=== PATIENT | female | born 1970 | race American Indian/Alaskan Native ===

== ENCOUNTER 2022-02-16 17:55 | Emergency (ER) | payer OTHER ==
[2022-02-16 18:16] VITALS: BP 141/94
[2022-02-16] MEDS ORDERED: SODIUM CHLORIDE 0.9% 1000 ML 1,000 ML IV ONE (18:24)
--- NOTE | 2022-02-16 18:34 | Emergency Department Report ---
ED Palpitations HPI - General Chief Complaint: Arrhythmia/Palpitations Stated Complaint: SVT Time Seen by Provider: 02/16/22 18:22 Source: patient, EMS Mode of arrival: Stretcher Limitations: No Limitations - History of Present Illness Initial Comments: 51-year-old female with no past medical history brought in by EMS with cardiac arrhythmia that started few hours before presentation. Patient denies any unusual stressors. Patient denies any cold or heat intolerance. She said her heart started racing suddenly. Patient was given 6 mg of adenosine with instant conversion into normal sinus. EMS tracing captured 182 bpm before treatment was given. No fever or chills reported. No other modifying or associated factors reported. Patient reported that she is postmenopausal. - Related Data Previous Rx's Medication Instructions Recorded Last Taken Type Ciprofloxacin HCl [Cipro] 500 mg PO Q12H #10 tab 10/05/13 Unknown Rx Ferrous Sulfate [Iron Supplement 325 mg PO TID #90 tablet 10/05/13 Unknown Rx 325 Mg tab] medroxyPROGESTERone ACETATE 10 mg PO QDAY #10 tablet 10/05/13 Unknown Rx [Provera] Allergies Allergy/AdvReac Type Severity Reaction Status Date / Time No Known Allergies Allergy Unverified 10/05/13 16:19 ED Review of Systems ROS: Stated complaint: SVT Other details as noted in HPI Comment: All other systems reviewed and negative Respiratory: shortness of breath Cardiovascular: palpitations (SVT). denies: chest pain ED Past Medical Hx - Past Medical History Previous Medical History?: Yes Additional medical history: Endometriosis and uterine polyps - Surgical History Past Surgical History?: No - Social History Smoking Status: Never Smoker Substance Use Type: None - Medications Home Medications: Home Medications Medication Instructions Recorded Confirmed Last Taken Type Ciprofloxacin HCl [Cipro] 500 mg PO Q12H #10 tab 10/05/13 Unknown Rx Ferrous Sulfate [Iron Supplement 325 mg PO TID #90 tablet 10/05/13 Unknown Rx 325 Mg tab] medroxyPROGESTERone ACETATE 10 mg PO QDAY #10 tablet 10/05/13 Unknown Rx [Provera] ED Physical Exam - General Limitations: No Limitations General appearance: alert, in no apparent distress - Head Head exam: Present: atraumatic, normal inspection - Eye Eye exam: Present: normal appearance Pupils: Present: normal accommodation - ENT ENT exam: Present: normal exam, normal orophraynx, mucous membranes moist - Neck Neck exam: Present: normal inspection, full ROM. Absent: tenderness, lymphadenopathy - Respiratory Respiratory exam: Present: normal lung sounds bilaterally. Absent: respiratory distress, accessory muscle use - Cardiovascular Cardiovascular Exam: Present: regular rate, normal rhythm, normal heart sounds - GI/Abdominal GI/Abdominal exam: Present: soft, normal bowel sounds, hypoactive bowel sounds. Absent: distended, tenderness - Extremities Exam Extremities exam: Present: normal inspection, full ROM, normal capillary refill. Absent: tenderness, pedal edema, joint swelling - Back Exam Back exam: Absent: tenderness - Neurological Exam Neurological exam: Present: alert, oriented X3 - Psychiatric Psychiatric exam: Present: normal affect, normal mood - Skin Skin exam: Present: warm, normal color ED Course Vital Signs 02/16/22 02/16/22 02/16/22 18:05 18:07 18:15 Temperature 97.9 F Pulse Rate 103 H Respiratory 16 12 Rate Blood Pressure 141/94 [Left] O2 Sat by Pulse 99 Oximetry 02/16/22 18:56 Temperature Pulse Rate Respiratory Rate Blood Pressure [Left] O2 Sat by Pulse 100 Oximetry - Reevaluation(s) Reevaluation #1: 02/16/22 18:37 Brought in by EMS with SVT at the rate of 182 beats per minute--and given at the nursing 6 mg IV x1 with return of sinus rhythm currently at 92 bpm with no symptoms. Differential diagnosis may include but not limited to post myocardial infarction, general anxiety, hyper or hypothyroidism, infectious process or elec trolyte abnormality--and as a result we will go ahead and order routine labs that include CBC, CMP, UA, urine drug screen, TSH, ECG and troponin. Reevaluation #2: 02/16/22 19:34 Patient continues to deny any symptoms at this point. Lab reviews to been within normal limit including troponin but with pending TSH at this point. We will continue to monitor Reevaluation #3: 02/16/22 21:28 Pt labs reviewed to be within normal limit including TSH -- and patient continue to be stable with normal sinus -- unsure the cause of this patient sVT. 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 ED Medical Decision Making - Lab Data Result diagrams: 02/16/22 18:34 02/16/22 18:34 Critical care attestation.: If time is entered above; I have spent that time in minutes in the direct care of this critically ill patient, excluding procedure time. ED Disposition Clinical Impression: SVT (supraventricular tachycardia) Disposition: HOME / SELF CARE / HOMELESS Is pt being admited?: No Does the pt Need Aspirin: No Condition: Stable Instructions: Supraventricular Tachycardia, Adult, [id number], Supravent ricular Tachycardia, Adult Additional Instructions: Increase your daily fluid to help your hydration Please call and schedule follow-up with your primary doctor in the next 3 to 5 days for progress Please do not hesitate to call or return to emergency room if your symptoms worsen as that can be a sign for complication and you might need to be monitor with holter monitor. Referrals: PRIMARY CARE, [Primary Care Provider] - 3-5 Days Time of Disposition: 21:32
[2022-02-16 18:52] LABS: Basophils # (Auto) 0.1 K/mm3 (0.0-0.1); Basophils % (Auto) 0.9 % (0.0-1.8); Eosinophils # (Auto) 0.2 K/mm3 (0.0-0.4); Eosinophils % (Auto) 2.2 % (0.0-4.3); Hematocrit 38.9 % (30.3-42.9); Hemoglobin 13.4 gm/dl (10.1-14.3); Lymphocytes # (Auto) 2.6 K/mm3 (1.2-5.4); Lymphocytes % (Auto) 31.7 % (13.4-35.0); Mean Corpuscular HGB Conc 35 % (30-34); Mean Corpuscular Volume 84 fl (79-97); Monocytes # (Auto) 0.7 K/mm3 (0.0-0.8); Monocytes % (Auto) 8.2 % (0.0-7.3); Platelet Count 258 K/mm3 (140-440); Red Blood Count 4.66 M/mm3 (3.65-5.03)
[2022-02-16 19:03] LABS: INR 0.8 (0.87-1.13)
[2022-02-16 19:04] LABS: Partial Thromboplastin Time 25.3 Sec. (24.2-36.6)
[2022-02-16 19:18] LABS: Alanine Aminotransferase 16 units/L (7-56); Albumin 4.4 g/dL (3.9-5); BUN/Creatinine Ratio 16; Blood Urea Nitrogen 14 mg/dL (7-17); Calcium 9.9 mg/dL (8.4-10.2); Hemolysis Index 4
[2022-02-16 21:46] LABS: Bilirubin,Urine NEG (Negative); Blood,Urine SM (Negative); Color,Urine Straw (Yellow); Protein,Urine <15 mg/dL mg/dL (Negative); RBC,Urine < 1.0 /HPF (0.0-6.0); Urobilinogen,Urine < 2.0 mg/dL (<2.0); WBC,Urine < 1.0 /HPF (0.0-6.0)
[2022-02-16 21:56] LABS: Amphetamine Screen,Urine PRESUMPTIVE NEGATIVE; Benzodiazepines Screen,Urine PRESUMPTIVE NEGATIVE; Cannabinoid Screen,Urine PRESUMPTIVE NEGATIVE; Cocaine Screen,Urine PRESUMPTIVE NEGATIVE; Methadone Screen,Urine PRESUMPTIVE NEGATIVE; Opiate Screen,Urine PRESUMPTIVE NEGATIVE
--- NOTE | 2022-02-17 10:13 | Electrocardiograph Report ---
[facility] Test Date: 2022-02-16 Test Time: 18:11:01 Pat Name: BRIE VARMA Department: Room: Gender: F Website Developer: VIJAY : 1970 Requested By: NIRAJ RICHARDS Order Number: [id number] Reading MD: Ryan Smith Measurements Intervals [place] Rate: 92 P: 48 SC: 176 QRS: -37 QRSD: 110 T: 38 QT: 374 QTc: 463 Interpretive Statements Sinus rhythm Probable left atrial enlargement Left axis deviation No previous ECG available for comparison Electronically Signed On 02-17-2022 10:12:30 EDT by Ryan Smith
== END 2022-02-16 22:00 | disposition home or self-care (01) ==
LOC: ED 17:55
DX: I47.1 Supraventricular tachycardia (principal); Z79.899 Other long term (current) drug therapy
CPT/HCPCS: 36415; 80053; 80307; 81001; 83880; 84443; 84484; 85025; 85610; 85730; 93005; 96360; 99284; J7030